=== PATIENT | male | born 1955 | race Caucasian/White ===

== ENCOUNTER → 2016-04-12 | Outpatient (REF) | payer BC ==
[~2016-04-12] MED LIST: COUM7.5T PO; NAPR1TAB86 PO; NEUR300C PO; NEXI40CA PO; NORCOTAB PO; PERC5TAB6 PO; TYLE325T5 PO
[2016-04-14 00:06] LABS: Lyme Disease IgG/IgM Antibodie <0.91 ISR (0.00-0.90); Lyme Disease IgM Ab Quantitati <0.80 index (0.00-0.79)
== END ==
LOC: M LAB REF 12:46
PROVIDERS: ATTEND Nurse Practitioner Family
DX: M17.11 Unilateral primary osteoarthritis, right knee (principal)

== ENCOUNTER → 2016-05-10 | Outpatient (CLI) | payer BC, MEDICARE ==
[~2016-05-10] VITALS: Ht 175.3 cm; Wt 88.9 kg
[~2016-05-10] MED LIST changes: +LIDOCAINE 2% INJ 100 MG/5 ML SDV (FOR ANES.) As Ordered ONE; +NS 1,000 ML IV SCH; +PROPOFOL 500 MG/50 ML VIAL As Ordered ONE
--- NOTE | 2016-05-10 11:11 | ROOR ---
Patient Name: Alireza Garcia Procedure Date: 05/10/2016 10:40 AM Date of : 1955 Age: 60 Room: [facility] Gender: Male Note Status: Finalized Procedure: Colonoscopy Indications: Rectal bleeding Providers: Francisco Bell Jr, MD Referring MD: Ramila Shukla DO Requesting Provider: Medicines: Propofol per Anesthesia Complications: No immediate complications. Procedure: Pre-Anesthesia Assessment: - Prior to the procedure, a History and Physical was performed, and patient medications and allergies were reviewed. The patient is competent. The risks and benefits of the procedure and the sedation options and risks were discussed with the patient. All questions were answered and informed consent was obtained. Patient identification and proposed procedure were verified by the physician and the nurse in the pre-procedure area and in the procedure room. Mental Status Examination: alert and oriented. Airway Examination: normal oropharyngeal airway and neck mobility. Respiratory Examination: clear to auscultation. CV Examination: normal. ASA Grade Assessment: II - A patient with mild systemic disease. After reviewing the risks and benefits, the patient was deemed in satisfactory condition to undergo the procedure. The anesthesia plan was to use moderate sedation / analgesia (conscious sedation). Immediately prior to administration of medications, the patient was re-assessed for adequacy to receive sedatives. The heart rate, respiratory rate, oxygen saturations, blood pressure, adequacy of pulmonary ventilation, and response to care were monitored throughout the procedure. The physical status of the patient was re-assessed after the procedure. The Colonoscope was introduced through the anus and advanced to the cecum, identified by appendiceal orifice and ileocecal valve. The colonoscopy was performed without difficulty. The patient tolerated the procedure well. The quality of the bowel preparation was adequate and good. Findings: The perianal and digital rectal examinations were normal. Pertinent negatives include normal sphincter tone, no palpable rectal lesions and no anal lesion or abnormality was detected. A few small-mouthed diverticula were found in the sigmoid colon. The rectum, recto-sigmoid colon, descending colon, transverse colon, ascending colon, cecum, appendiceal orifice and ileocecal valve appeared normal. Non-bleeding internal hemorrhoids were found during endoscopy. The hemorrhoids were Grade II (internal hemorrhoids that prolapse but reduce spontaneously). Impression: - Diverticulosis in the sigmoid colon. - The rectum, recto-sigmoid colon, descending colon, transverse colon, ascending colon, cecum, appendiceal orifice and ileocecal valve are normal. - No specimens collected. Recommendation: - Discharge patient to home (ambulatory). - Repeat colonoscopy in 10 years for screening purposes. Francisco Bell MD Francisco Bell Jr, MD 05/10/2016 11:10:53 AM This report has been signed electronically. Number of Addenda: 0 Note Initiated On: 05/10/2016 10:40 AM Estimated Blood Loss: Estimated blood loss: none.
[2016-05-10 11:40] VITALS: BP 138/90
== END | disposition home or self-care (01) ==
LOC: M OPP 10:05
PROVIDERS: ATTEND Surgery
DX: K62.5 Hemorrhage of anus and rectum (principal); K57.30 Diverticulosis of large intestine without perforation or abscess without bleeding; K64.1 Second degree hemorrhoids; M19.90 Unspecified osteoarthritis, unspecified site; L40.9 Psoriasis, unspecified; Z79.891 Long term (current) use of opiate analgesic; Z88.1 Allergy status to other antibiotic agents; Z91.013 Allergy to seafood; Z91.030 Bee allergy status

== ENCOUNTER → 2018-01-10 | Outpatient (REF) | payer BC, MEDICARE ==
[2018-01-10 15:30] LABS: LIPASE 139 U/L (73-393)
[2018-01-10 15:30] LABS: AMYLASE 33 U/L (25-115)
[2018-01-10 16:46] LABS: CONTROL LINE HPYORI INT CTR LINE PRESENT; H PYLORI QUALITATIVE IgG NEGATIVE (NEGATIVE)
[2018-01-12 00:06] LABS: TISSUE TRANSGLUTAMINASE IgA <2 U/mL (0-3)
[2018-01-12 00:06] LABS: ENDOMYSIAL ABY IgA Negative (Negative)
== END ==
LOC: M LAB REF 12:40
DX: R10.13 Epigastric pain (principal)

== ENCOUNTER → 2018-05-27 | Outpatient (CLI) | payer BC, MEDICARE ==
[~2018-05-27] MED LIST changes: +BACL10TA8; +DULO1CAP2; +FLUTISP; +ISOVUE-370 76% 100ML VIAL (Q9967) As Ordered ONE; -LIDOCAINE 2% INJ 100 MG/5 ML SDV (FOR ANES.) As Ordered ONE; -NS 1,000 ML IV SCH; +PERC5TAB12 PO; -PERC5TAB6 PO; -PROPOFOL 500 MG/50 ML VIAL As Ordered ONE; +RANI300T
--- NOTE | 2018-05-27 09:46 | REP ---
CT thoracic spine with contrast History: Lipoma Contrast: Isovue 378 100 ml. There is no acute fracture or subluxation. There is no disc bulge or herniation. Posterior osteophytes are present in the T8-9 and T9-10 levels. There is minimal narrowing of the spinal canal show these levels. The neural foramina are patent. There is loss of height of several mid and lower thoracic intervertebral discs consistent with disc degeneration. Anterior osteophytes are present throughout the thoracic spine. Impression: Degenerative change as described above. Electronically Signed by Dez Calhoun MD 05/27/2018 09:38 A
--- NOTE | 2018-05-27 09:58 | REP ---
CT lumbar spine with contrast History: Lipoma Contrast: Isovue 370 100 ml Comparison: MR 06/13/2016 A diffuse disc bulge with associated osteophyte formation is present at the L1-2 level. There is minimal compression of the thecal sac. The L1 nerves exit the neural foramina without compression. A diffuse disc bulge with associated osteophyte formation is present at the L2-3 level. There is minimal compression of the thecal sac. There is hypertrophy of the posterior to the facets. There is compression of the right L2 nerve in the neural foramen. The left L2 nerve exits the neural foramen without compression. A laminectomy defect is present. The patient is status post L3-L5 posterior spinal fusion and laminectomy. No hardware is present. A diffuse disc bulge with associated osteophyte reaction is present at the L3-4 level. There is minimal compression of the thecal sac. There is hypertrophy of the posterior to the facets. There is compression of the L3 nerves in the neural foramina. A diffuse disc bulge with associated osteophyte formation is present at the L4-5 level. There is minimal compression of the thecal sac. There is hypertrophy of the posterior to the facets. There is compression of the L4 nerves in the neural foramina. Diffuse disc bulge is present at the L5-L1 level. There is no thecal sac compression. There is hypertrophy of the posterior to the facets. The L5 nerves exit the neural foramina without compression. The T12-1 through L5-L1 intervertebral discs are decreased in height. Vacuum phenomenon is present at the T12-L1 L1-2 L2-3 and L4-5 levels. These findings are consistent with disc degeneration. There is no subluxation. Impression: 1. Diffuse disc bulge with associated osteophyte formation at the L1-2 l and L2-3 levels with minimal thecal sac compression. There is compression of the right L2 nerve in the neural foramen. The laminectomy defect is present at the L2-3 level. 2. The patient is status post L3-L5 posterior spinal fusion and laminectomy. There is anatomic alignment. The postoperative change is a new finding. 3. Diffuse disc bulges with associated osteophyte formation at the L3-4 and L4-5 levels with minimal thecal sac compression. There is compression of the L3 and L4 nerves in the neural foramina. 4. Diffuse disc bulge at the L5-L1 level without thecal sac or nerve compression. Electronically Signed by Dez Calhoun MD 05/27/2018 09:49 A
== END ==
LOC: M RAD 08:07
PROVIDERS: ATTEND Surgery
DX: D17.1 Benign lipomatous neoplasm of skin and subcutaneous tissue of trunk (principal); M25.78 Osteophyte, vertebrae; M51.26 Other intervertebral disc displacement, lumbar region; M96.1 Postlaminectomy syndrome, not elsewhere classified; Z98.1 Arthrodesis status; M51.84 Other intervertebral disc disorders, thoracic region
CPT/HCPCS: 72129; 72132; Q9967

== ENCOUNTER 2018-05-29 09:41 | Day surgery (SDC) | payer BC, MEDICARE ==
[~2018-05-29] VITALS: Ht 172.7 cm; Wt 96.2 kg
[~2018-05-29 09:41] MED LIST changes: -ISOVUE-370 76% 100ML VIAL (Q9967) As Ordered ONE; +LIDOCAINE 2% INJ 100 MG/5 ML SDV (FOR ANES.) As Ordered ONE; +NS 1,000 ML IV ONE; +PROPOFOL 200 MG/20 ML VIAL As Ordered ONE
[2018-05-29] MEDS ORDERED: fentaNYL 100 MCG/2 ML INJECTION (J3010) As Ordered ONE (10:40)
--- NOTE | 2018-05-29 10:57 | ROOR ---
Patient Name: Alireza Garcia Procedure Date: 05/29/2018 10:35 AM Date of : 1955 Age: 62 Room: [facility] Gender: Male Note Status: Finalized Procedure: Upper GI endoscopy Indications: Epigastric abdominal pain Providers: Francisco Bell Jr, MD Referring MD: ANNE SAHA JR, MD Requesting Provider: Medicines: Propofol per Anesthesia Complications: No immediate complications. Procedure: Pre-Anesthesia Assessment: - Prior to the procedure, a History and Physical was performed, and patient medications and allergies were reviewed. The patient is competent. The risks and benefits of the procedure and the sedation options and risks were discussed with the patient. All questions were answered and informed consent was obtained. Patient identification and proposed procedure were verified by the physician and the nurse in the pre-procedure area and in the procedure room. Mental Status Examination: alert and oriented. Airway Examination: normal oropharyngeal airway and neck mobility. Respiratory Examination: clear to auscultation. CV Examination: normal. ASA Grade Assessment: II - A patient with mild systemic disease. After reviewing the risks and benefits, the patient was deemed in satisfactory condition to undergo the procedure. The anesthesia plan was to use moderate sedation / analgesia (conscious sedation). Immediately prior to administration of medications, the patient was re-assessed for adequacy to receive sedatives. The heart rate, respiratory rate, oxygen saturations, blood pressure, adequacy of pulmonary ventilation, and response to care were monitored throughout the procedure. The physical status of the patient was re-assessed after the procedure. The Endoscope was introduced through the mouth, and advanced to the second part of duodenum. The upper GI endoscopy was accomplished without difficulty. The patient tolerated the procedure well. Findings: The upper third of the esophagus, middle third of the esophagus, lower third of the esophagus and gastroesophageal junction were normal. Patchy mild inflammation characterized by congestion (edema), erythema and friability was found in the gastric antrum and in the prepyloric region of the stomach. Biopsies were taken with a cold forceps for histology. The cardia, gastric fundus and gastric body were normal. The second portion of the duodenum was normal. Patchy moderate inflammation characterized by congestion (edema), erythema, friability and granularity was found in the duodenal bulb and in the first portion of the duodenum. Impression: - Normal upper third of esophagus, middle third of esophagus, lower third of esophagus and gastroesophageal junction. - Gastritis. Biopsied. - Normal cardia, gastric fundus and gastric body. - Normal second portion of the duodenum. - Duodenitis. Recommendation: - Discharge patient to home (ambulatory). - Return to my office in 2 weeks. Francisco Bell MD Francisco Bell Jr, MD 05/29/2018 10:57:10 AM This report has been signed electronically. Number of Addenda: 0 Note Initiated On: 05/29/2018 10:35 AM Estimated Blood Loss: Estimated blood loss: none.
[2018-05-29 11:15] VITALS: BP 132/90
== END 2018-05-29 11:30 | disposition home or self-care (01) ==
LOC: M OPP 09:41
PROVIDERS: ATTEND Surgery
DX: K29.70 Gastritis, unspecified, without bleeding (principal); K29.80 Duodenitis without bleeding; R10.13 Epigastric pain; Z79.899 Other long term (current) drug therapy; Z91.030 Bee allergy status; Z91.013 Allergy to seafood; Z88.1 Allergy status to other antibiotic agents
CPT/HCPCS: 43239; 88305; J3010

== ENCOUNTER → 2018-08-28 | Outpatient (CLI) | payer BC, MEDICARE ==
[~2018-08-28] MED LIST changes: +HYDR-3715 PO; -LIDOCAINE 2% INJ 100 MG/5 ML SDV (FOR ANES.) As Ordered ONE; -NORCOTAB PO; -NS 1,000 ML IV ONE; -PROPOFOL 200 MG/20 ML VIAL As Ordered ONE
--- NOTE | 2018-08-28 12:02 | REP ---
MR Brain without contrast HISTORY: Labyrinthitis COMPARISON : None Scattered punctate areas of increased signal intensity on T2-weighted images are present in the periventricular and subcortical white matter. This represents small-vessel ischemic disease. There is no intraparenchymal hemorrhage, infarct, mass or midline shift. The ventricular system is normal in appearance. There is no extra cerebral collection. The sinuses are clear. IMPRESSION: Minimal small vessel ischemic disease. Electronically Signed by Dez Calhoun MD 08/28/2018 11:54 A
== END ==
LOC: M RAD 10:01
PROVIDERS: ATTEND Otolaryngology
DX: H83.09 Labyrinthitis, unspecified ear (principal); I67.89 Other cerebrovascular disease

== ENCOUNTER → 2018-12-30 | Outpatient (CLI) | payer BC, MEDICARE ==
[~2018-12-30] MED LIST changes: -DULO1CAP2; +DULO1CAP5; +PROHANCE 279.3MG/ML 15ML VIAL (A9576) As Ordered ONE; +PROHANCE 279.3MG/ML 5ML VIAL (A9576) As Ordered ONE
--- NOTE | 2018-12-30 16:44 | REP ---
MRI lumbar spine: 12/30/2018. Indication: Lumbar radiculopathy. Comparison: 11/22/2007. Technique: Multiplanar short and long TR sequences of the lumbar spine were obtained including T1 imaging following 18 ml of IV ProHance. Findings: Image diagnostic quality is suboptimal secondary to the presence of surgical hardware and associated susceptibility artifact extending from L3 to L5. There is straightening of the lumbar lordosis. The patient is status post L3 - L5 decompressive laminectomies. There is a tiny hyperintense T2 collection within the laminectomy defect which is likely of no clinical significance. No areas of pathologic gadolinium enhancement are detected. No significant paraspinal abnormalities are detected. L1/L2: Disc desiccation and disc space narrowing are present with a mild diffuse disc bulge. There is no significant spinal canal or neural foraminal narrowing. L2/L3: Disc and spur complex is present, most apparent anteriorly on the right with significant disc space narrowing and desiccation. There is no significant spinal canal or neural foraminal narrowing. L3/L4: Postoperative changes are present without significant compression of the thecal sac. There is significant disc space narrowing and desiccation. Neural foraminal evaluation is suboptimal, however, they do appear patent. L4/L5: Postoperative sequelae are present without significant compression of the thecal sac. Significant disc desiccation and disc space narrowing are present. There is minimal spurring laterally particularly on the right without significant neural foraminal narrowing detected. L5/S1: Postoperative sequelae are present without significant spinal canal or neural foraminal narrowing detected. There is no significant compression of the thecal sac. Impression: Extensive multilevel degenerative and postoperative sequelae as described without significant spinal canal narrowing or compression of the thecal sac at the laminectomy levels. Electronically Signed by Levi Mahan DO 12/30/2018 04:36 P
== END ==
LOC: M RAD 10:09
PROVIDERS: ATTEND Nurse Practitioner Family
DX: M51.36 Other intervertebral disc degeneration, lumbar region (principal); M54.16 Radiculopathy, lumbar region
CPT/HCPCS: 72158; A9576

== ENCOUNTER → 2019-06-30 | Outpatient (REF) | payer BC, MEDICARE ==
[~2019-06-30] MED LIST changes: -PROHANCE 279.3MG/ML 15ML VIAL (A9576) As Ordered ONE; -PROHANCE 279.3MG/ML 5ML VIAL (A9576) As Ordered ONE
== END ==
LOC: M LAB REF 15:10
PROVIDERS: ATTEND Otolaryngology
DX: H66.3X2 Other chronic suppurative otitis media, left ear (principal); H72.02 Central perforation of tympanic membrane, left ear

== ENCOUNTER → 2019-07-10 | Outpatient (REF) | payer BC, MEDICARE ==
[2019-07-10 14:16] LABS: RHEUMATOID FACTOR QUANT < 10.0 IU/ML (<15.0)
[2019-07-10 14:36] LABS: HEPATITIS B SURFACE ANTIGEN NEGATIVE (NEGATIVE)
[2019-07-10 15:03] LABS: HEPATITIS C VIRUS ABY INDEX 0.1 INDEX (<0.8)
[2019-07-10 15:04] LABS: HEPATITIS B CORE ANTIBODY IGM NEGATIVE (NEGATIVE)
[2019-07-10 15:05] LABS: HIV 1&2 SCREEN CENTAUR NEGATIVE (NEGATIVE)
[2019-07-10 15:06] LABS: HEPATITIS A ANTIBODY IGM NEGATIVE (NEGATIVE)
[2019-07-11 08:06] LABS: HEPATITIS B CORE ANTIBODY IGG Negative (Negative)
== END ==
LOC: M LAB REF 12:23
PROVIDERS: ATTEND Internal Medicine
DX: L40.9 Psoriasis, unspecified (principal)

== ENCOUNTER → 2019-11-22 | Outpatient (CLI) | payer OTHER, BC, MEDICARE ==
[~2019-11-22] MED LIST changes: -COUM7.5T PO; +COUM7.5T6 PO
== END ==
LOC: M LABSMTC 09:32
PROVIDERS: ATTEND Physical Medicine & Rehabilitation
DX: Z11.59 Encounter for screening for other viral diseases (principal)

== ENCOUNTER → 2019-11-25 | Outpatient (CLI) | payer OTHER, BC, MEDICARE ==
[2019-11-25 13:00] LABS: INR 0.91; PROTHROMBIN TIME 12.5 SECONDS (11.8-14.0)
[2019-11-25 13:01] LABS: PARTIAL THROMBOPLASTIN TIME 26.1 SECONDS (25.0-38.4)
[2019-11-25 13:12] LABS: COLLAGEN EPINEPHRINE 76 SECONDS (74-162)
== END ==
LOC: M LAB 12:25
PROVIDERS: ATTEND Physical Medicine & Rehabilitation
DX: Z01.818 Encounter for other preprocedural examination (principal)

== ENCOUNTER → 2019-12-02 | Outpatient (CLI) | payer BC, MEDICARE | LOC: M LABSMTC 10:23 | PROVIDERS: ATTEND Physical Medicine & Rehabilitation | DX: Z20.828 Contact with and (suspected) exposure to other viral communicable diseases (principal) ==

== ENCOUNTER → 2019-12-17 | Outpatient (CLI) | payer BC, MEDICARE ==
--- NOTE | 2019-12-17 12:33 | REPVR ---
PROCEDURE INFORMATION: Exam: MR Head Without Contrast Exam date and time: 12/17/2019 12:23 PM Age: 64 years old Clinical indication: Other: Migranes TECHNIQUE: Imaging protocol: MR of the head without contrast. COMPARISON: MRI-Brain without Contrast 08/28/2018 10:57 AM FINDINGS: Brain: No restricted diffusion is seen to suggest acute infarction. There is no acute intracranial hemorrhage, cerebral edema, or midline shift. Mild increased T2 and FLAIR signal within the periventricular and subcortical white matter is present. This is nonspecific but likely related to chronic microangiopathic ischemic change. Cerebral ventricles: Normal. No ventriculomegaly. Bones/joints: Unremarkable. Paranasal sinuses: Normal as visualized. No acute sinusitis. Mastoid air cells: Normal as visualized. No mastoid effusion. Orbits: Unremarkable. Soft tissues: Unremarkable. IMPRESSION: 1. No acute intracranial abnormality. 2. Chronic findings as discussed above. Electronically signed by: Gil Bowie On 12/17/2019 12:32:57 PM
== END ==
LOC: M RAD 11:34
PROVIDERS: ATTEND Physical Medicine & Rehabilitation
DX: R51.9 Headache, unspecified (principal)

== ENCOUNTER → 2020-01-05 | Outpatient (CLI) | payer BC, MEDICARE ==
[2020-01-05 11:33] LABS: BLOOD UREA NITROGEN 15 MG/DL (7-18); C REACTIVE PROTEIN QUANTITATIV < 0.30 MG/DL (0.00-0.30); CREATININE FOR GFR 0.99 MG/DL (0.70-1.30); GLOMERULAR FILTRATION RATE > 60.0 (>49)
== END ==
LOC: M LAB 09:47
PROVIDERS: ATTEND Physician Assistant
DX: M47.26 Other spondylosis with radiculopathy, lumbar region (principal); M51.37 Other intervertebral disc degeneration, lumbosacral region

== ENCOUNTER → 2020-07-08 | Outpatient (CLI) | payer BC, MEDICARE ==
[2020-07-08 09:44] LABS: BASO % 0.4 % (0.0-1.0); EOS # 0.2 10^3/uL (0.0-0.5); HEMATOCRIT 47.1 % (42.0-52.0); HEMOGLOBIN 15.3 g/dl (13.5-17.5); LYMPH # 2.5 10^3/uL (1.5-5.0); LYMPH % 32.1 % (24.0-44.0); MEAN CORPUSCULAR HEMOGLOBIN 30.1 pg (27.0-33.0); MEAN CORPUSCULAR HGB CONC 32.5 g/dl (32.0-36.5); MEAN CORPUSCULAR VOLUME 92.5 fl (80.0-96.0); MONO # 0.6 10^3/uL (0.0-0.8); MONO % 8.2 % (2.0-8.0); NEUTROPHILS # 4.5 10^3/uL (1.5-8.5); NEUTROPHILS % 56.8 % (36.0-66.0); PLATELET COUNT, AUTOMATED 230 10^3/uL (150-450); RED BLOOD COUNT 5.09 10^6/uL (4.30-6.10); WHITE BLOOD COUNT 7.8 10^3/uL (4.0-10.0)
[2020-07-08 10:03] LABS: ALBUMIN 4.1 GM/DL (3.2-5.2); ALT/SGPT 37 U/L (12-78); BILIRUBIN,TOTAL 0.5 MG/DL (0.2-1.0); BLOOD UREA NITROGEN 19 MG/DL (7-18); CALCIUM LEVEL 9.9 MG/DL (8.8-10.2); CARBON DIOXIDE LEVEL 31 MEQ/L (21-32); CHLORIDE LEVEL 104 MEQ/L (98-107); CREATININE FOR GFR 0.91 MG/DL (0.70-1.30); GLOMERULAR FILTRATION RATE > 60.0 (>49); GLUCOSE, FASTING 104 MG/DL (70-100); POTASSIUM SERUM 4.5 MEQ/L (3.5-5.1); SODIUM LEVEL 137 MEQ/L (136-145); TOTAL PROTEIN 7.3 GM/DL (6.4-8.2)
[2020-07-08 10:21] LABS: HEPATITIS B SURFACE ANTIGEN NEGATIVE (NEGATIVE)
[2020-07-08 10:49] LABS: HEPATITIS B CORE ANTIBODY IGM NEGATIVE (NEGATIVE); HEPATITIS C VIRUS ABY INDEX < 0.0 INDEX (<0.8)
[2020-07-08 10:50] LABS: HIV 1&2 SCREEN CENTAUR NEGATIVE (NEGATIVE)
[2020-07-08 10:51] LABS: HEPATITIS A ANTIBODY IGM NEGATIVE (NEGATIVE)
== END ==
LOC: M LAB 08:30
PROVIDERS: ATTEND Dermatology
DX: L40.9 Psoriasis, unspecified (principal)

== ENCOUNTER → 2020-11-03 | Outpatient (CLI) | payer BC, MEDICARE ==
[2020-11-03 09:22] LABS: HEMATOCRIT 49.3 % (42.0-52.0); HEMOGLOBIN 16.4 g/dl (13.5-17.5); MEAN CORPUSCULAR HEMOGLOBIN 31.3 pg (27.0-33.0); MEAN CORPUSCULAR HGB CONC 33.3 g/dl (32.0-36.5); MEAN CORPUSCULAR VOLUME 94.1 fl (80.0-96.0); PLATELET COUNT, AUTOMATED 217 10^3/uL (150-450); RED BLOOD COUNT 5.24 10^6/uL (4.30-6.10); WHITE BLOOD COUNT 7.8 10^3/uL (4.0-10.0)
[2020-11-03 10:01] LABS: ALBUMIN 4.2 GM/DL (3.2-5.2); ALT/SGPT 34 U/L (12-78); BILIRUBIN,TOTAL 0.8 MG/DL (0.2-1.0); BLOOD UREA NITROGEN 19 MG/DL (7-18); CALCIUM LEVEL 9.7 MG/DL (8.8-10.2); CARBON DIOXIDE LEVEL 28 MEQ/L (21-32); CHLORIDE LEVEL 105 MEQ/L (98-107); CREATININE FOR GFR 1.08 MG/DL (0.70-1.30); GLOMERULAR FILTRATION RATE > 60.0 (>49); GLUCOSE, FASTING 106 MG/DL (70-100); POTASSIUM SERUM 4.9 MEQ/L (3.5-5.1); SODIUM LEVEL 137 MEQ/L (136-145); TOTAL PROTEIN 7.4 GM/DL (6.4-8.2)
[2020-11-03 11:50] LABS: HEPATITIS B SURFACE ANTIGEN NEGATIVE (NEGATIVE)
[2020-11-03 12:18] LABS: HEPATITIS B CORE ANTIBODY IGM NEGATIVE (NEGATIVE); HEPATITIS C VIRUS ABY INDEX < 0.0 INDEX (<0.8)
[2020-11-03 12:20] LABS: HEPATITIS A ANTIBODY IGM NEGATIVE (NEGATIVE)
== END ==
LOC: M LAB 08:51
PROVIDERS: ATTEND Physician Assistant
DX: L40.9 Psoriasis, unspecified (principal)

== ENCOUNTER → 2021-02-28 | Outpatient (CLI) | payer BC, MEDICARE ==
[2021-02-28 12:47] LABS: BLOOD UREA NITROGEN 22 MG/DL (7-18); CREATININE FOR GFR 1.24 MG/DL (0.70-1.30); GLOMERULAR FILTRATION RATE > 60.0 (>49)
== END ==
LOC: M LAB 09:58
PROVIDERS: ATTEND Physician Assistant
DX: M54.2 Cervicalgia (principal); Z98.1 Arthrodesis status

== ENCOUNTER → 2021-03-03 | Outpatient (CLI) | payer BC, MEDICARE | LOC: M PLARAD 10:10 | PROVIDERS: ATTEND Physician Assistant | DX: M54.2 Cervicalgia (principal); M43.22 Fusion of spine, cervical region; M48.02 Spinal stenosis, cervical region; M50.21 Other cervical disc displacement, high cervical region ==

== ENCOUNTER → 2021-04-17 | Outpatient (REF) | payer BC, MEDICARE | LOC: M LAB REF 14:23 | PROVIDERS: ATTEND Otolaryngology | DX: H70.12 Chronic mastoiditis, left ear (principal) ==

== ENCOUNTER → 2021-05-08 | Outpatient (CLI) | payer BC, MEDICARE | LOC: M RAD 12:57 | PROVIDERS: ATTEND Nurse Practitioner Family | DX: I77.9 Disorder of arteries and arterioles, unspecified (principal) ==

== ENCOUNTER → 2021-06-02 | Outpatient (CLI) | payer BC, MEDICARE ==
[2021-06-02 08:54] LABS: ALBUMIN 4.3 GM/DL (3.2-5.2); ALT/SGPT 47 U/L (12-78); BILIRUBIN,TOTAL 0.8 MG/DL (0.2-1.0); BLOOD UREA NITROGEN 23 MG/DL (7-18); CALCIUM LEVEL 9.6 MG/DL (8.8-10.2); CARBON DIOXIDE LEVEL 26 MEQ/L (21-32); CHLORIDE LEVEL 109 MEQ/L (98-107); CHOLESTEROL LEVEL 192 MG/DL (<200); CHOLESTEROL RISK RATIO 3.764 (<5); CREATININE FOR GFR 1.25 MG/DL (0.70-1.30); GLOMERULAR FILTRATION RATE > 60.0 (>49); GLUCOSE, FASTING 98 MG/DL (70-100); HDL CHOLESTEROL 51 MG/DL (>40); LDL CHOLESTEROL 130 MG/DL (<100); NON-HDL-C 141 MG/DL; POTASSIUM SERUM 4.4 MEQ/L (3.5-5.1); SODIUM LEVEL 141 MEQ/L (136-145); TOTAL PROTEIN 7.9 GM/DL (6.4-8.2); TRIGLYCERIDES LEVEL 57 MG/DL (<150)
[2021-06-02 09:09] LABS: BASO % 0.5 % (0.0-1.0); EOS # 0.1 10^3/uL (0.0-0.5); EOS % 1.2 % (0.0-3.0); HEMATOCRIT 52.8 % (42.0-52.0); LYMPH # 2.4 10^3/uL (1.5-5.0); MEAN CORPUSCULAR HEMOGLOBIN 30.3 pg (27.0-33.0); MEAN CORPUSCULAR HGB CONC 33.5 g/dl (32.0-36.5); MEAN CORPUSCULAR VOLUME 90.3 fl (80.0-96.0); MONO # 0.7 10^3/uL (0.0-0.8); MONO % 8.2 % (2.0-8.0); NEUTROPHILS # 5.1 10^3/uL (1.5-8.5); NEUTROPHILS % 60.6 % (36.0-66.0); PLATELET COUNT, AUTOMATED 204 10^3/uL (150-450); RED BLOOD COUNT 5.85 10^6/uL (4.30-6.10); WHITE BLOOD COUNT 8.4 10^3/uL (4.0-10.0)
[2021-06-02 09:15] LABS: HEMOGLOBIN 17.7 g/dl (13.5-17.5)
== END ==
LOC: M LAB 07:57
PROVIDERS: ATTEND Internal Medicine
DX: E78.00 Pure hypercholesterolemia, unspecified (principal); I10 Essential (primary) hypertension

== ENCOUNTER → 2021-06-02 | Outpatient (CLI) | payer BC, MEDICARE ==
[2021-06-02 08:26] LABS: PLATELET COUNT, AUTOMATED 205 10^3/uL (150-450)
[2021-06-02 08:36] LABS: INR 0.96; PROTHROMBIN TIME 13.2 SECONDS (12.7-14.5)
[2021-06-02 08:37] LABS: PARTIAL THROMBOPLASTIN TIME 31.8 SECONDS (25.9-37.0)
[2021-06-02 08:54] LABS: COLLAGEN EPINEPHRINE 68 SECONDS (74-162)
== END ==
LOC: M LAB 07:55
PROVIDERS: ATTEND Physical Medicine & Rehabilitation
DX: M47.27 Other spondylosis with radiculopathy, lumbosacral region (principal)

== ENCOUNTER → 2021-06-12 | Outpatient (CLI) | payer BC, MEDICARE ==
[2021-06-12 11:24] LABS: COLLAGEN EPINEPHRINE 88 SECONDS (74-162)
== END ==
LOC: M LAB 10:05
PROVIDERS: ATTEND Physical Medicine & Rehabilitation
DX: Z01.812 Encounter for preprocedural laboratory examination (principal)

== ENCOUNTER 2021-06-29 06:05 | Day surgery (SDC) | payer BC, MEDICARE ==
[~2021-06-29] VITALS: Ht 172.7 cm; Wt 89.7 kg
[~2021-06-29 06:05] MED LIST changes: +AMIO200T49 PO; +BACL10TA2 PO; +BACL5TAB2 PO; +ELIQ5TAB PO; +FAMO40TA3 PO; +GUSE100A SC; +HYDR-4571 PO; +LIDOCAINE 1% MDV 20ML VIAL SQ PRN; +LR 1,000 ML IV ONE; +METO1TAB32 PO; +PREG150C PO
[2021-06-29] MEDS ORDERED: LIDOCAINE 2% 100MG/5ML SDV (FOR ANES.) As Ordered ONE (06:56)
[2021-06-29] MEDS ORDERED: propofoL 200 MG/20 ML VIAL As Ordered ONE (06:56)
[2021-06-29 08:15] VITALS: BP 114/62
== END 2021-06-29 08:20 | disposition home or self-care (01) ==
LOC: M SDC 06:05
PROVIDERS: ATTEND Internal Medicine Cardiovascular Disease
DX: I48.0 Paroxysmal atrial fibrillation (principal); I65.21 Occlusion and stenosis of right carotid artery; R55 Syncope and collapse; M19.90 Unspecified osteoarthritis, unspecified site; M54.9 Dorsalgia, unspecified; K21.9 Gastro-esophageal reflux disease without esophagitis; G62.9 Polyneuropathy, unspecified; L40.9 Psoriasis, unspecified; G47.9 Sleep disorder, unspecified; Z79.899 Other long term (current) drug therapy; Z79.01 Long term (current) use of anticoagulants; Z79.2 Long term (current) use of antibiotics; Z91.013 Allergy to seafood; Z88.1 Allergy status to other antibiotic agents; Z91.030 Bee allergy status

== ENCOUNTER → 2021-11-14 | Outpatient (CLI) | payer BC, MEDICARE ==
[~2021-11-14] MED LIST changes: -LIDOCAINE 1% MDV 20ML VIAL SQ PRN; -LR 1,000 ML IV ONE
== END ==
LOC: M WUC 11:46
PROVIDERS: ATTEND Internal Medicine
DX: R05.9 Cough, unspecified (principal)

== ENCOUNTER → 2021-11-24 | Outpatient (CLI) | payer BC, MEDICARE ==
[2021-11-24 11:14] LABS: BLOOD UREA NITROGEN 22 MG/DL (7-18); CREATININE FOR GFR 1.15 MG/DL (0.70-1.30); GLOMERULAR FILTRATION RATE > 60.0 (>49)
== END ==
LOC: M LAB 08:26
PROVIDERS: ATTEND Surgery
DX: Z01.810 Encounter for preprocedural cardiovascular examination (principal); Z79.899 Other long term (current) drug therapy

== ENCOUNTER → 2021-12-05 | Outpatient (CLI) | payer BC, MEDICARE ==
[~2021-12-05] MED LIST changes: +GASTROGRAFIN SOLUTION 30ML (Q9963) As Ordered ONE; +ISOVUE-370 76% 100ML VIAL As Ordered ONE
== END ==
LOC: M RAD 14:12
PROVIDERS: ATTEND Surgery
DX: K43.9 Ventral hernia without obstruction or gangrene (principal); R10.819 Abdominal tenderness, unspecified site
CPT/HCPCS: 74178; Q9963; Q9967

== ENCOUNTER → 2022-01-07 | Outpatient (CLI) | payer BC, MEDICARE ==
[~2022-01-07] MED LIST changes: +BACL10TA2; -GASTROGRAFIN SOLUTION 30ML (Q9963) As Ordered ONE; -ISOVUE-370 76% 100ML VIAL As Ordered ONE; +LISI10TA22
== END ==
LOC: M LABSMTC 11:55
PROVIDERS: ATTEND Anesthesiology
DX: Z01.818 Encounter for other preprocedural examination (principal); Z11.52 Encounter for screening for COVID-19

== ENCOUNTER 2022-01-11 10:21 | Day surgery (SDC) | payer BC, MEDICARE ==
[~2022-01-11] VITALS: Ht 172.7 cm; Wt 88.1 kg
[~2022-01-11 10:21] MED LIST changes: +NS 1,000 ML IV ONE
[2022-01-11] MEDS ORDERED: fentaNYL 100 MCG/2 ML INJECTION As Ordered ONE (11:24)
[2022-01-11] MEDS ORDERED: propofoL 200 MG/20 ML VIAL As Ordered ONE (11:36)
[2022-01-11] MEDS ORDERED: LIDOCAINE 2% 100MG/5ML SDV (FOR ANES.) As Ordered ONE (11:36)
[2022-01-11 11:53] VITALS: BP 98/36
== END 2022-01-11 12:03 | disposition home or self-care (01) ==
LOC: M OPP 10:21
PROVIDERS: ATTEND Surgery
DX: K22.82 Esophagogastric junction polyp (principal); R10.13 Epigastric pain; Z79.01 Long term (current) use of anticoagulants; Z79.51 Long term (current) use of inhaled steroids; Z79.891 Long term (current) use of opiate analgesic; Z79.899 Other long term (current) drug therapy; Z88.0 Allergy status to penicillin; Z91.013 Allergy to seafood; Z91.030 Bee allergy status; I48.91 Unspecified atrial fibrillation; L40.9 Psoriasis, unspecified; G60.9 Hereditary and idiopathic neuropathy, unspecified; M13.80 Other specified arthritis, unspecified site
CPT/HCPCS: 43239; 88305; J3010

== ENCOUNTER → 2022-04-02 | Outpatient (CLI) | payer BC, MEDICARE ==
[~2022-04-02] MED LIST changes: -NS 1,000 ML IV ONE
== END ==
LOC: M LAB 08:09
PROVIDERS: ATTEND Physician Assistant
DX: Z79.899 Other long term (current) drug therapy (principal)

== ENCOUNTER → 2022-04-26 | Outpatient (CLI) | payer BC, MEDICARE | LOC: M LABSMTC 11:09 | PROVIDERS: ATTEND Pain Medicine Interventional Pain Medicine | DX: Z01.812 Encounter for preprocedural laboratory examination (principal); Z20.822 Contact with and (suspected) exposure to COVID-19 ==

== ENCOUNTER → 2022-06-15 | Outpatient (REF) | payer BC, MEDICARE ==
[2022-06-15 12:02] LABS: LIPASE 30 U/L (12-53)
[2022-06-15 12:03] LABS: AMYLASE 38 U/L (30-118)
== END ==
LOC: M LAB REF 11:14
PROVIDERS: ATTEND Internal Medicine
DX: R11.0 Nausea (principal)

== ENCOUNTER → 2022-07-17 | Outpatient (CLI) | payer BC, MEDICARE ==
[~2022-07-17] MED LIST changes: +FLUT50SP17; -FLUTISP
== END ==
LOC: M RAD 11:15
PROVIDERS: ATTEND Physician Assistant Medical
DX: R11.0 Nausea (principal); R10.13 Epigastric pain; R68.81 Early satiety
CPT/HCPCS: 78264; A9541

== ENCOUNTER → 2022-07-19 | Outpatient (CLI) | payer BC, MEDICARE | LOC: M WUC 08:13 | PROVIDERS: ATTEND Internal Medicine | DX: M85.88 Other specified disorders of bone density and structure, other site (principal); M51.36 Other intervertebral disc degeneration, lumbar region; W19.XXXD Unspecified fall, subsequent encounter; Z98.890 Other specified postprocedural states ==

== ENCOUNTER → 2022-09-04 | Outpatient (REF) | payer BC, MEDICARE ==
[2022-09-04 18:24] LABS: INR 0.91; PROTHROMBIN TIME 12.4 SECONDS (12.5-14.5)
== END ==
LOC: M LAB REF 16:31
PROVIDERS: ATTEND Internal Medicine
DX: Z01.810 Encounter for preprocedural cardiovascular examination (principal)

== ENCOUNTER → 2022-09-06 | Outpatient (CLI) | payer BC, MEDICARE ==
[2022-09-06 07:56] LABS: HEMATOCRIT 44.8 % (42.0-52.0); HEMOGLOBIN 14.8 g/dl (13.5-17.5); MEAN CORPUSCULAR VOLUME 93.9 fl (80.0-96.0); PLATELET COUNT, AUTOMATED 213 10^3/uL (150-450); RED BLOOD COUNT 4.77 10^6/uL (4.30-6.10); WHITE BLOOD COUNT 9.5 10^3/uL (4.0-10.0)
[2022-09-06 08:18] LABS: LIPASE 33 U/L (12-53)
[2022-09-06 08:21] LABS: ALKALINE PHOSPHATASE 59 U/L (46-116); ALT/SGPT 21 U/L (7.0-40); AMYLASE 46 U/L (30-118); AST/SGOT 13 U/L (<34); BILIRUBIN,TOTAL 0.4 MG/DL (0.3-1.2); BLOOD UREA NITROGEN 18 MG/DL (9-23); CALCIUM LEVEL 9.5 MG/DL (8.3-10.6); CARBON DIOXIDE LEVEL 27 MMOL/L (20-31); CHLORIDE LEVEL 105 MMOL/L (98-107); CREATININE FOR GFR 0.98 MG/DL (0.70-1.30); GLOMERULAR FILTRATION RATE > 60.0 (>49); GLUCOSE, FASTING 106 MG/DL (74-106); POTASSIUM SERUM 4.3 MMOL/L (3.5-5.1); SODIUM LEVEL 138 MMOL/L (136-145); TOTAL PROTEIN 6.7 G/DL (5.7-8.2)
== END ==
LOC: M LAB 07:00
PROVIDERS: ATTEND Physician Assistant Medical
DX: R11.0 Nausea (principal)

== ENCOUNTER → 2022-09-06 | Outpatient (CLI) | payer BC, MEDICARE | LOC: M RAD 07:03 | PROVIDERS: ATTEND Orthopaedic Surgery | DX: Z01.818 Encounter for other preprocedural examination (principal); M17.11 Unilateral primary osteoarthritis, right knee ==

== ENCOUNTER → 2022-10-23 | Outpatient (CLI) | payer MEDICARE, BC ==
[2022-10-23 14:07] LABS: BASO % 0.4 % (0.0-1.0); EOS # 0.1 10^3/uL (0.0-0.5); EOS % 0.9 % (0.0-3.0); HEMATOCRIT 41.5 % (42.0-52.0); LYMPH # 2.1 10^3/uL (1.5-5.0); MEAN CORPUSCULAR HEMOGLOBIN 29.7 pg (27.0-33.0); MEAN CORPUSCULAR HGB CONC 31.3 g/dl (32.0-36.5); MONO # 0.7 10^3/uL (0.0-0.8); MONO % 9.2 % (2.0-8.0); NEUTROPHILS # 4.6 10^3/uL (1.5-8.5); NEUTROPHILS % 61.2 % (36.0-66.0); PLATELET COUNT, AUTOMATED 230 10^3/uL (150-450); RED BLOOD COUNT 4.37 10^6/uL (4.30-6.10); WHITE BLOOD COUNT 7.5 10^3/uL (4.0-10.0)
[2022-10-23 14:36] LABS: ERYTHROCYTE SEDIMENTATION RATE 22 mm/hr (0-20)
== END ==
LOC: M PLALAB 09:41
PROVIDERS: ATTEND Physician Assistant
DX: Z47.1 Aftercare following joint replacement surgery (principal); M25.461 Effusion, right knee; Z96.651 Presence of right artificial knee joint

== ENCOUNTER → 2022-10-23 | Outpatient (CLI) | payer MEDICARE, BC | LOC: M WHC 12:57 | PROVIDERS: ATTEND Physician Assistant | DX: Z47.1 Aftercare following joint replacement surgery (principal); M79.604 Pain in right leg; M25.461 Effusion, right knee; Z96.651 Presence of right artificial knee joint ==

== ENCOUNTER → 2023-03-05 | Outpatient (REF) | payer MEDICARE, BC ==
[~2023-03-05] MED LIST changes: -FLUT50SP17; +FLUTISP; -PREG150C PO; +PREG150C2 PO
== END ==
LOC: M LAB REF 16:33
PROVIDERS: ATTEND Internal Medicine
DX: R53.83 Other fatigue (principal); Z11.59 Encounter for screening for other viral diseases

== ENCOUNTER → 2023-04-26 | Outpatient (CLI) | payer BC, MEDICARE ==
[~2023-04-26] MED LIST changes: +ISOVUE-300 61% 100ML VIAL As Ordered ONE; +LIDOCAINE 1% MDV 20ML VIAL As Ordered ONE; +TRIAMCINOLONE ACETONIDE SUSP 40MG/ML 1ML VIAL As Ordered ONE
== END ==
LOC: M RAD 10:04
PROVIDERS: ATTEND Orthopaedic Surgery
DX: M19.012 Primary osteoarthritis, left shoulder (principal)
CPT/HCPCS: 20610; 77002; J3301; Q9967

== ENCOUNTER → 2023-05-14 | Outpatient (CLI) | payer BC, MEDICARE ==
[~2023-05-14] MED LIST changes: +ATOR1TAB21 PO; -BACL10TA2; +FLEC1TAB PO; -ISOVUE-300 61% 100ML VIAL As Ordered ONE; -LIDOCAINE 1% MDV 20ML VIAL As Ordered ONE; +TAMS1CAP17 PO; -TRIAMCINOLONE ACETONIDE SUSP 40MG/ML 1ML VIAL As Ordered ONE
== END ==
LOC: M WUC 09:19
PROVIDERS: ATTEND Nurse Practitioner Family
DX: M43.22 Fusion of spine, cervical region (principal)

== ENCOUNTER → 2023-06-11 | Outpatient (CLI) | payer MEDICARE, BC ==
[2023-06-11 11:20] LABS: BASO % 0.3 % (0.0-1.0); EOS # 0.1 10^3/uL (0.0-0.5); EOS % 0.8 % (0.0-3.0); HEMOGLOBIN 16.2 g/dl (13.5-17.5); LYMPH # 2.8 10^3/uL (1.5-5.0); LYMPH % 31.2 % (24.0-44.0); MEAN CORPUSCULAR HEMOGLOBIN 30.7 pg (27.0-33.0); MEAN CORPUSCULAR HGB CONC 33.8 g/dl (32.0-36.5); MEAN CORPUSCULAR VOLUME 91.1 fl (80.0-96.0); MONO # 0.6 10^3/uL (0.0-0.8); MONO % 6.3 % (2.0-8.0); NEUTROPHILS # 5.4 10^3/uL (1.5-8.5); NEUTROPHILS % 61.2 % (36.0-66.0); RED BLOOD COUNT 5.27 10^6/uL (4.30-6.10); WHITE BLOOD COUNT 8.8 10^3/uL (4.0-10.0)
[2023-06-11 11:50] LABS: C REACTIVE PROTEIN QUANTITATIV < 0.40 MG/DL (<1.0)
[2023-06-11 11:53] LABS: RHEUMATOID FACTOR QUANT 6.2 IU/ML (<14)
[2023-06-12 14:09] LABS: ANTINUCLEAR ANTIBODIES DIRECT Negative (Negative)
== END ==
LOC: M LAB 10:31
PROVIDERS: ATTEND Orthopaedic Surgery
DX: M70.61 Trochanteric bursitis, right hip (principal); Z79.899 Other long term (current) drug therapy

== ENCOUNTER → 2023-06-11 | Outpatient (CLI) | payer MEDICARE, BC ==
[2023-06-11 11:53] LABS: CHOLESTEROL RISK RATIO 2.7 (<5); MAGNESIUM LEVEL 1.6 MG/DL (1.8-2.4); PHOSPHORUS LEVEL 3.6 MG/DL (2.4-5.1)
[2023-06-11 11:55] LABS: FOLATE 16.66 NG/ML (>5.4); TOTAL 25(OH) VITAMIN D 20.7 NG/ML (20.0-100.0)
[2023-06-18 11:32] LABS: HOMOCYST(E)INE SERUM 11.4 umol/L (0.0-17.2); IMMUNOTYPING SERUM IGA SO 277 mg/dL (61-437); IMMUNOTYPING SERUM IGM SO 123 mg/dL (20-172); Methylmalonic Acid 170 nmol/L (0-378); VITAMIN B1 LEVEL WHOLE BLOOD 142.4 nmol/L (66.5-200.0)
== END ==
LOC: M LAB 10:29
PROVIDERS: ATTEND Psychiatry & Neurology Neurology
DX: E55.9 Vitamin D deficiency, unspecified (principal); G62.9 Polyneuropathy, unspecified; E78.5 Hyperlipidemia, unspecified

== ENCOUNTER 2023-06-17 05:52 | Day surgery (SDC) | payer MEDICARE, BC ==
[~2023-06-17] VITALS: Ht 172.7 cm; Wt 90.1 kg
[2023-06-17] MEDS ORDERED: LR 1,000 ML IV SCH ×2 (06:30→07:15)
[2023-06-17] MEDS ORDERED: LIDOCAINE 2% 100MG/5ML SDV (FOR ANES.) As Ordered ONE (07:06)
[2023-06-17] MEDS ORDERED: propofoL 200 MG/20 ML VIAL As Ordered ONE (07:06)
[2023-06-17] MEDS ORDERED: ONDANSETRON 4MG 2ML VIAL IV PRN (07:15)
[2023-06-17 07:55] VITALS: BP 127/57; TEMP 97.5; O2SAT 98
== END 2023-06-17 08:07 | disposition home or self-care (01) ==
LOC: M SDC 05:52
PROVIDERS: ATTEND Internal Medicine Cardiovascular Disease
DX: I48.19 Other persistent atrial fibrillation (principal); I10 Essential (primary) hypertension; G62.9 Polyneuropathy, unspecified; E78.00 Pure hypercholesterolemia, unspecified; Z79.01 Long term (current) use of anticoagulants; Z79.899 Other long term (current) drug therapy; Z88.1 Allergy status to other antibiotic agents; Z91.013 Allergy to seafood; Z91.030 Bee allergy status; L40.9 Psoriasis, unspecified

== ENCOUNTER → 2023-08-02 | Outpatient (CLI) | payer MEDICARE, BC ==
[2023-08-02 08:53] LABS: CALCIUM LEVEL 9.5 MG/DL (8.3-10.6); CREATININE FOR GFR 1.33 MG/DL (0.70-1.30); GLOMERULAR FILTRATION RATE 57.4 (>49); POTASSIUM SERUM 4.5 MMOL/L (3.5-5.1)
== END ==
LOC: M LAB 07:32
PROVIDERS: ATTEND Internal Medicine Cardiovascular Disease
DX: I48.0 Paroxysmal atrial fibrillation (principal)

== ENCOUNTER → 2023-08-06 | Outpatient (CLI) | payer MEDICARE, BC | LOC: M RAD 09:40 | PROVIDERS: ATTEND Orthopaedic Surgery | DX: M25.561 Pain in right knee (principal); Z96.651 Presence of right artificial knee joint; R93.7 Abnormal findings on diagnostic imaging of other parts of musculoskeletal system | CPT/HCPCS: 78315; A9503 ==

== ENCOUNTER → 2023-09-06 | Outpatient (CLI) | payer BC, MEDICARE ==
[2023-09-06 11:10] LABS: BASO % 0.3 % (0.0-1.0); EOS # 0.1 10^3/uL (0.0-0.5); EOS % 1.2 % (0.0-3.0); HEMATOCRIT 47.1 % (42.0-52.0); HEMOGLOBIN 15.9 g/dl (13.5-17.5); LYMPH # 2.7 10^3/uL (1.5-5.0); LYMPH % 28.7 % (24.0-44.0); MEAN CORPUSCULAR HEMOGLOBIN 31.3 pg (27.0-33.0); MEAN CORPUSCULAR HGB CONC 33.8 g/dl (32.0-36.5); MEAN CORPUSCULAR VOLUME 92.7 fl (80.0-96.0); MONO # 0.6 10^3/uL (0.0-0.8); MONO % 6.4 % (2.0-8.0); NEUTROPHILS # 5.9 10^3/uL (1.5-8.5); NEUTROPHILS % 63.1 % (36.0-66.0); PLATELET COUNT, AUTOMATED 206 10^3/uL (150-450); RED BLOOD COUNT 5.08 10^6/uL (4.30-6.10); WHITE BLOOD COUNT 9.4 10^3/uL (4.0-10.0)
[2023-09-06 11:20] LABS: ERYTHROCYTE SEDIMENTATION RATE 8 mm/hr (0-20)
== END ==
LOC: M LAB 10:42
PROVIDERS: ATTEND Orthopaedic Surgery
DX: M25.561 Pain in right knee (principal)

== ENCOUNTER → 2023-09-17 | Outpatient (CLI) | payer BC, MEDICARE | LOC: M RAD 14:31 | PROVIDERS: ATTEND Psychiatry & Neurology Neurology | DX: I67.9 Cerebrovascular disease, unspecified (principal) ==

== ENCOUNTER → 2023-10-01 | Outpatient (CLI) | payer BC, MEDICARE ==
[2023-10-01 09:23] LABS: BLOOD UREA NITROGEN 24 MG/DL (9-23); CALCIUM LEVEL 9.6 MG/DL (8.3-10.6); CARBON DIOXIDE LEVEL 27 MMOL/L (20-31); CHLORIDE LEVEL 106 MMOL/L (98-107); CREATININE FOR GFR 0.98 MG/DL (0.70-1.30); GLOMERULAR FILTRATION RATE > 60.0 (>49); GLUCOSE, FASTING 99 MG/DL (74-106); POTASSIUM SERUM 4.5 MMOL/L (3.5-5.1); SODIUM LEVEL 140 MMOL/L (136-145)
== END ==
LOC: M LAB 08:20
PROVIDERS: ATTEND Psychiatry & Neurology Neurology
DX: I67.9 Cerebrovascular disease, unspecified (principal)

== ENCOUNTER → 2023-10-25 | Outpatient (CLI) | payer BC, MEDICARE ==
[~2023-10-25] MED LIST changes: +ISOVUE-370 76% 100ML VIAL As Ordered ONE
== END ==
LOC: M RAD 14:41
PROVIDERS: ATTEND Psychiatry & Neurology Neurology
DX: I65.21 Occlusion and stenosis of right carotid artery (principal)
CPT/HCPCS: 70496; 70498; Q9967

== ENCOUNTER → 2024-04-13 | Outpatient (REF) | payer BC, MEDICARE ==
[~2024-04-13] MED LIST changes: -ISOVUE-370 76% 100ML VIAL As Ordered ONE
== END ==
LOC: M SFHCDERM 16:43
PROVIDERS: ATTEND Physician Assistant
DX: B07.8 Other viral warts (principal)

== ENCOUNTER → 2024-06-10 | Outpatient (CLI) | payer BC, MEDICARE | LOC: M RAD 06:33 | PROVIDERS: ATTEND Psychiatry & Neurology Neurology | DX: G54.0 Brachial plexus disorders (principal); M54.12 Radiculopathy, cervical region ==

== ENCOUNTER → 2024-08-05 | Outpatient (CLI) | payer BC, MEDICARE ==
[~2024-08-05] MED LIST changes: +ISOVUE-370 76% 100ML VIAL As Ordered ONE
== END ==
LOC: M RAD 10:05
PROVIDERS: ATTEND Physician Assistant
DX: I65.23 Occlusion and stenosis of bilateral carotid arteries (principal); I77.1 Stricture of artery; E04.1 Nontoxic single thyroid nodule
CPT/HCPCS: 70498; Q9967

== ENCOUNTER → 2024-12-17 | Outpatient (CLI) | payer BC, MEDICARE ==
[~2024-12-17] MED LIST changes: -AMIO200T49 PO; +AMIO200T54 PO; +ATOR40TA75 PO; +CETI-24 PO; +HYDR200T46 PO; -ISOVUE-370 76% 100ML VIAL As Ordered ONE; +METO1TAB7 PO
[2024-12-17 10:23] LABS: PLATELET COUNT, AUTOMATED 194 10^3/uL (150-450)
[2024-12-17 10:34] LABS: INR 0.99
== END ==
LOC: M LAB 09:38
PROVIDERS: ATTEND Physical Medicine & Rehabilitation
DX: Z01.818 Encounter for other preprocedural examination (principal); M54.16 Radiculopathy, lumbar region; Z79.01 Long term (current) use of anticoagulants

== ENCOUNTER 2024-12-25 07:03 | Day surgery (SDC) | payer BC, MEDICARE ==
[~2024-12-25] VITALS: Ht 175.3 cm; Wt 91.2 kg
[~2024-12-25 07:03] MED LIST changes: +KETOROLAC 30 MG/ML 1 ML VIAL As Ordered ONE; +LIDOCAINE 2% 100 MG/5 ML SDV (FOR ANES.) As Ordered ONE; +ONDANSETRON 4MG 2ML VIAL As Ordered ONE; +ROCURONIUM BROMIDE 50MG/5ML VIAL As Ordered ONE; +SUGAMMADEX SODIUM 500 MG/5 ML VIAL As Ordered ONE; +dexAMETHasone 4 MG/ML 1 ML VIAL As Ordered ONE
[2024-12-25] MEDS ORDERED: MIDAZOLAM INJ 2 MG/2 ML VIAL As Ordered ONE (07:53)
[2024-12-25] MEDS ORDERED: dexmedeTOMIDine (4 MCG/ML) 200 MCG/50 ML BTL As Ordered ONE (08:19)
[2024-12-25] MEDS: ceFAZolin SOD 2 GM IV ONCE IV ONE (08:35)
[2024-12-25] MEDS ORDERED: ACETAMINOPHEN 1000MG/100ML IV BAG As Ordered ONE (08:42)
[2024-12-25 09:06] VITALS: BP 119/73; TEMP 97.8; O2SAT 98
== END 2024-12-25 09:33 | disposition home or self-care (01) ==
LOC: M SDC 07:03
PROVIDERS: ATTEND Surgery
DX: D17.1 Benign lipomatous neoplasm of skin and subcutaneous tissue of trunk (principal); I48.91 Unspecified atrial fibrillation; I10 Essential (primary) hypertension; E78.00 Pure hypercholesterolemia, unspecified; Z79.01 Long term (current) use of anticoagulants; Z79.899 Other long term (current) drug therapy; Z91.013 Allergy to seafood; Z91.030 Bee allergy status; Z88.1 Allergy status to other antibiotic agents; G62.9 Polyneuropathy, unspecified
CPT/HCPCS: 21931; 88304; J0131; J0665; J0688; J1100; J1885; J2250; J2405; J3010